=== PATIENT | male | born 1995 | race American Indian/Alaskan Native ===

== ENCOUNTER 2019-09-23 01:54 | Emergency (ER) | payer OTHER ==
[2019-09-23 02:13] VITALS: BP 126/68
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
== END 2019-09-23 04:15 | disposition home or self-care (01) ==
LOC: ED 01:54
DX: S00.01XA Abrasion of scalp, initial encounter (principal); J45.909 Unspecified asthma, uncomplicated; F17.200 Nicotine dependence, unspecified, uncomplicated; V49.49XA Driver injured in collision with other motor vehicles in traffic accident, initial encounter; Y93.89 Activity, other specified; Y92.89 Other specified places as the place of occurrence of the external cause; Y99.8 Other external cause status
CPT/HCPCS: 99282